=== PATIENT | male | born 1950 | race Asian ===

== ENCOUNTER 2021-06-12 09:09 | Inpatient (IN) ==
[2021-06-12 10:02] LABS: Venous Bicarbonate HCO3 31.8 mmol/L (24-28)
[2021-06-12 10:10] LABS: ABS Lymphocytes 0.7 10^3/ul (1.0-4.8); ABS Monocytes 0.6 10^3/ul (0-0.8); ABS Neutrophils 4.3 10^3/ul (1.5-7.7); Eosinophil % 0.3 %; Hematocrit 59 % (42-52); Hemoglobin 18.6 g/dL (14.0-18.0); Lymphocyte % 12.1 %; Mean Corpuscular HGB Conc 31 g/dL (31-36); Mean Corpuscular Hemoglobin 28 pg (27-31); Mean Corpuscular Volume 88 fL (80-94); Red Blood Count 6.74 10^6 /uL (4.18-5.48); Red Cell Distribution Width 17 % (10-15); White Blood Count 5.5 10^3/uL (3.5-10.8)
[2021-06-12 10:12] LABS: Activated Partial Thrombo Time 32.6 seconds (26.0-38.0); INR 1.42 (0.86-1.15)
[2021-06-12 10:20] LABS: Influenza A Molecular Negative (Negative); Influenza B Molecular Negative (Negative)
[2021-06-12 10:28] LABS: Albumin 3.4 g/dL (3.2-5.2); Anion Gap 5 mmol/L (2-11); CO2 Carbon Dioxide 38 mmol/L (22-32); Calcium 8.4 mg/dL (8.6-10.3); Chloride 98 mmol/L (101-111); Potassium 4.7 mmol/L (3.5-5.0); Sodium 141 mmol/L (135-145)
[2021-06-12 10:30] LABS: Troponin I 0.05 ng/mL (<0.03)
[2021-06-12 10:34] LABS: ALT 55 U/L (7-52); AST 31 U/L (13-39); Albumin/Globulin Ratio 1.6 (1-3); Alkaline Phosphatase 69 U/L (35-149); Blood Urea Nitrogen 46 mg/dL (6-24); EGFR African American 67.2 (>60); EGFR Non-African American 55.6 (>60); Globulin 2.1 g/dL (2-4); Glucose 134 mg/dL (70-100); Total Protein 5.5 g/dL (6.4-8.9)
[2021-06-12 10:37] LABS: Mean Platelet Volume 10.9 fL (7.4-10.4); Platelet Count 89 10^3/uL (150-450)
[2021-06-12] MEDS ORDERED: Furosemide 20 mg/2 ml IV VIAL IV ONE (11:16)
[2021-06-12 11:58] LABS: PO2 Arterial 92 mmHg (80-100)
[2021-06-12 12:01] LABS: PCO2 Arterial 93 mmHg (35-45)
[2021-06-12 13:14] LABS: Troponin I 0.05 ng/mL (<0.03)
[2021-06-12 13:30] LABS: Urine Appearance Clear; Urine Bacteria Absent (Absent); Urine Bilirubin Negative (Negative); Urine Blood 1+ (Negative); Urine Color Yellow; Urine Glucose Negative (Negative); Urine Ketones Negative (Negative); Urine Nitrite Negative (Negative); Urine Protein Negative (Negative); Urine Red Blood Cell 1+(3-5/hpf) (Absent); Urine Specific Gravity 1.008 (1.002-1.030); Urine Urobilinogen Negative (Negative); Urine White Blood Cell Trace(0-5/hpf) (Absent)
[2021-06-12] MEDS ORDERED: Albuterol/Ipratropium NEB.SOL (2.5/0.5 MG) 3 ML NEB.SOLN INH PRN (14:07)
[2021-06-12 14:30] LABS: Phosphorus 4.8 mg/dL (2.5-5.0)
[2021-06-12] MEDS ORDERED: Furosemide 100 mg/10 ml IV VIAL IV ONE (15:00)
[2021-06-12 16:37] LABS: Urine Appearance Clear; Urine Bilirubin Negative (Negative); Urine Blood 3+ (Negative); Urine Color Straw; Urine Glucose Negative (Negative); Urine Ketones Negative (Negative); Urine Nitrite Negative (Negative); Urine Protein Negative (Negative); Urine Specific Gravity 1.005 (1.002-1.030); Urine Urobilinogen Negative (Negative)
[2021-06-12 16:49] LABS: Urine Amorphous Crystals Present (Absent); Urine Bacteria Absent (Absent); Urine Red Blood Cell 3+(>10/hpf) (Absent); Urine Squamous Epithelial Cell Present (Absent); Urine White Blood Cell Trace(0-5/hpf) (Absent)
[2021-06-12] MEDS: Furosemide 100 mg/10 ml IV 100 MG in NS 0.9% 100 ml BAG 90 ML IV SCH ×2 (17:15→19:58)
[2021-06-12] MEDS: Heparin 5000 UNITS/ML 1 mL VIAL SUBCUT SCH (19:58)
[2021-06-12 20:56] LABS: Calcium 8.2 mg/dL (8.6-10.3); EGFR African American 78.4 (>60); EGFR Non-African American 64.8 (>60); Magnesium 1.8 mg/dL (1.9-2.7); Phosphorus 5.5 mg/dL (2.5-5.0); Potassium 4.3 mmol/L (3.5-5.0)
[2021-06-12] MEDS ORDERED: Magnesium Sulfate 2 gm BAG 2 GM/50 ML BAG IVPB ONE (21:10)
[2021-06-12] MEDS ORDERED: Furosemide 100 mg/10 ml IV 100 MG in NS 0.9% 100 ml BAG 90 ML IV SCH (21:30)
[2021-06-13 02:20] LABS: EGFR African American 84.5 (>60); EGFR Non-African American 69.8 (>60); Magnesium 2.1 mg/dL (1.9-2.7); Phosphorus 5.2 mg/dL (2.5-5.0); Potassium 3.7 mmol/L (3.5-5.0)
[2021-06-13] MEDS: KCL 10 MEQ/50 ML IVPREMIX 10 MEQ/50 ML BAG IV SCH ×6 (02:33→08:59)
[2021-06-13] MEDS ORDERED: Furosemide 100 mg/10 ml IV 100 MG in NS 0.9% 100 ml BAG 90 ML IV SCH (06:00)
[2021-06-13 06:08] LABS: PO2 Arterial 69 mmHg (80-100)
[2021-06-13 06:16] LABS: PCO2 Arterial 79 mmHg (35-45)
[2021-06-13 08:35] LABS: Hematocrit 57 % (42-52); Hemoglobin 18.2 g/dL (14.0-18.0); Mean Corpuscular HGB Conc 32 g/dL (31-36); Mean Corpuscular Hemoglobin 27 pg (27-31); Mean Corpuscular Volume 86 fL (80-94); Red Blood Count 6.68 10^6 /uL (4.18-5.48); Red Cell Distribution Width 17 % (10-15); White Blood Count 6.1 10^3/uL (3.5-10.8)
[2021-06-13 08:59] LABS: Blood Urea Nitrogen 36 mg/dL (6-24); Calcium 7.9 mg/dL (8.6-10.3); Chloride 92 mmol/L (101-111); EGFR African American 89.4 (>60); EGFR Non-African American 73.9 (>60); Glucose 76 mg/dL (70-100); Sodium 144 mmol/L (135-145)
[2021-06-13] MEDS: Heparin 5000 UNITS/ML 1 mL VIAL SUBCUT SCH ×2 (08:59→20:14)
[2021-06-13 09:07] LABS: ABS Lymphocytes 0.5 10^3/ul (1.0-4.8); ABS Monocytes 0.6 10^3/ul (0-0.8); Eosinophil % 0.6 %; Lymphocyte % 7.6 %; Nucleated Red Blood Cells % 0.3; Platelet Count 70 10^3/uL (150-450)
[2021-06-13 09:22] LABS: CO2 Carbon Dioxide 48 mmol/L (22-32)
[2021-06-13] MEDS ORDERED: Iodixanol (CONTRAST) 320 MG/ML 100 ML SDV IV ONE (12:43)
[2021-06-13 13:54] LABS: C Reactive Protein 5.55 mg/L (<8.01)
[2021-06-13 14:42] LABS: Erythrocyte Sed Rate 0 mm/Hr (0-19)
[2021-06-13 16:13] LABS: Cholesterol 129 mg/dL; HDL Cholesterol 23.7 mg/dL; LDL Cholesterol 85 mg/dL; Triglycerides 101 mg/dL
[2021-06-14] MEDS: Heparin 5000 UNITS/ML 1 mL VIAL SUBCUT SCH ×2 (09:41→21:49)
[2021-06-14 12:59] LABS: ABS Lymphocytes 0.4 10^3/ul (1.0-4.8); ABS Monocytes 0.4 10^3/ul (0-0.8); ABS Neutrophils 4.3 10^3/ul (1.5-7.7); Eosinophil % 0.1 %; Hematocrit 54 % (42-52); Mean Corpuscular HGB Conc 32 g/dL (31-36); Mean Corpuscular Hemoglobin 27 pg (27-31); Mean Corpuscular Volume 87 fL (80-94); Mean Platelet Volume 10.3 fL (7.4-10.4); Nucleated Red Blood Cells % 0.2; Platelet Count 76 10^3/uL (150-450); Red Blood Count 6.21 10^6 /uL (4.18-5.48); Red Cell Distribution Width 17 % (10-15); White Blood Count 5.1 10^3/uL (3.5-10.8)
[2021-06-14 13:00] LABS: Blood Urea Nitrogen 22 mg/dL (6-24); Calcium 7.6 mg/dL (8.6-10.3); Chloride 96 mmol/L (101-111); EGFR African American 132.7 (>60); EGFR Non-African American 109.7 (>60); Glucose 214 mg/dL (70-100); Magnesium 1.8 mg/dL (1.9-2.7); Potassium 3.3 mmol/L (3.5-5.0); Sodium 144 mmol/L (135-145)
[2021-06-14 13:20] LABS: CO2 Carbon Dioxide 46 mmol/L (22-32)
[2021-06-14] MEDS ORDERED: Magnesium Sulfate 2 gm BAG 2 GM/50 ML BAG IVPB ONE (13:23)
[2021-06-14] MEDS ORDERED: Potassium Chlor 20 meq TAB.ER PO ONE (13:23)
[2021-06-15 07:30] LABS: ABS Lymphocytes 0.6 10^3/ul (1.0-4.8); ABS Monocytes 0.5 10^3/ul (0-0.8); ABS Neutrophils 3.8 10^3/ul (1.5-7.7); Eosinophil % 0.8 %; Hematocrit 55 % (42-52); Lymphocyte % 12.3 %; Mean Corpuscular HGB Conc 31 g/dL (31-36); Mean Corpuscular Hemoglobin 27 pg (27-31); Mean Corpuscular Volume 88 fL (80-94); Mean Platelet Volume 9.3 fL (7.4-10.4); Nucleated Red Blood Cells % 0.2; Platelet Count 59 10^3/uL (150-450); Red Blood Count 6.25 10^6 /uL (4.18-5.48); Red Cell Distribution Width 18 % (10-15); White Blood Count 4.9 10^3/uL (3.5-10.8)
[2021-06-15 07:33] LABS: ALT 29 U/L (7-52); AST 20 U/L (13-39); Albumin 2.8 g/dL (3.2-5.2); Albumin/Globulin Ratio 1.3 (1-3); Alkaline Phosphatase 49 U/L (35-149); Blood Urea Nitrogen 16 mg/dL (6-24); Calcium 7.7 mg/dL (8.6-10.3); Chloride 100 mmol/L (101-111); EGFR African American 139.5 (>60); EGFR Non-African American 115.3 (>60); Globulin 2.1 g/dL (2-4); Glucose 88 mg/dL (70-100); Potassium 3.9 mmol/L (3.5-5.0); Sodium 142 mmol/L (135-145); Total Protein 4.9 g/dL (6.4-8.9)
[2021-06-15 07:38] LABS: CO2 Carbon Dioxide 43 mmol/L (22-32)
[2021-06-15] MEDS: Heparin 5000 UNITS/ML 1 mL VIAL SUBCUT SCH ×2 (08:43→21:00)
[2021-06-15] MEDS ORDERED: Potassium Chlor 20 meq TAB.ER PO ONE (16:00)
[2021-06-16 06:21] LABS: Calcium 7.9 mg/dL (8.6-10.3)
[2021-06-16 06:26] LABS: EGFR African American 155.2 (>60); EGFR Non-African American 128.3 (>60)
[2021-06-16] MEDS: Heparin 5000 UNITS/ML 1 mL VIAL SUBCUT SCH ×2 (08:38→21:48)
[2021-06-16] MEDS ORDERED: diPHENhydraMINE 25 mg TAB PO ONE (12:46)
[2021-06-16] MEDS ORDERED: diPHENhydraMINE 25 mg TAB PO PRN (17:00)
[2021-06-16] MEDS: Mometasone/Formoter 100/5 MDI INH SCH (20:44)
[2021-06-16 22:06] LABS: Urine Color Yellow
[2021-06-16 22:08] LABS: Urine Appearance Cloudy; Urine Bacteria Absent (Absent); Urine Bilirubin Negative (Negative); Urine Blood 3+ (Negative); Urine Glucose Negative (Negative); Urine Ketones Negative (Negative); Urine Nitrite Negative (Negative); Urine Protein 1+(30 mg/dL) (Negative); Urine Red Blood Cell 3+(>10/hpf) (Absent); Urine Specific Gravity 1.015 (1.002-1.030); Urine Urobilinogen Positive (Negative); Urine White Blood Cell 1+(6-10/hpf) (Absent)
[2021-06-17 06:13] LABS: ABS Eosinophils 0.1 10^3/ul (0-0.6); ABS Lymphocytes 0.5 10^3/ul (1.0-4.8); ABS Monocytes 0.5 10^3/ul (0-0.8); ABS Neutrophils 3.5 10^3/ul (1.5-7.7); Eosinophil % 2.5 %; Hematocrit 56 % (42-52); Hemoglobin 16.8 g/dL (14.0-18.0); Lymphocyte % 10.6 %; Mean Corpuscular HGB Conc 30 g/dL (31-36); Mean Corpuscular Hemoglobin 27 pg (27-31); Mean Corpuscular Volume 90 fL (80-94); Mean Platelet Volume 9.6 fL (7.4-10.4); Nucleated Red Blood Cells % 0.3; Platelet Count 52 10^3/uL (150-450); Red Blood Count 6.23 10^6 /uL (4.18-5.48); Red Cell Distribution Width 17 % (10-15); White Blood Count 4.6 10^3/uL (3.5-10.8)
[2021-06-17 06:37] LABS: Calcium 7.9 mg/dL (8.6-10.3); EGFR African American 174.5 (>60); EGFR Non-African American 144.2 (>60); Potassium 3.8 mmol/L (3.5-5.0)
[2021-06-17] MEDS: Mometasone/Formoter 100/5 MDI INH SCH ×2 (07:38→19:33)
[2021-06-17] MEDS: SPIRIVA Respimat (tiotropium) 2.5 mcg/inh Inhaler INH SCH (07:38)
[2021-06-17] MEDS: Heparin 5000 UNITS/ML 1 mL VIAL SUBCUT SCH (09:31)
[2021-06-17 10:36] LABS: C Reactive Protein 10.65 mg/L (<8.01)
[2021-06-17] MEDS: Enoxaparin 40 MG/0.4 ML SYR SUBCUT SCH (16:19)
[2021-06-18] MEDS: SPIRIVA Respimat (tiotropium) 2.5 mcg/inh Inhaler INH SCH (07:22)
[2021-06-18] MEDS: Mometasone/Formoter 100/5 MDI INH SCH ×2 (07:23→19:45)
[2021-06-18 14:09] LABS: PCO2 Arterial 59 mmHg (35-45); PO2 Arterial 73 mmHg (80-100)
[2021-06-18] MEDS ORDERED: cefTRIAXone 1 gm/50 mL NS BAG 1 GM/50 ML BAG IVPB SCH (16:35)
[2021-06-18] MEDS: Enoxaparin 40 MG/0.4 ML SYR SUBCUT SCH (18:58)
[2021-06-18] MEDS: Linezolid 600 MG IVPREMIX(*) 600 MG/300 ML BAG IVPB SCH (19:18)
[2021-06-19] MEDS: SPIRIVA Respimat (tiotropium) 2.5 mcg/inh Inhaler INH SCH (06:59)
[2021-06-19] MEDS: Mometasone/Formoter 100/5 MDI INH SCH ×2 (07:02→20:03)
[2021-06-19] MEDS: Linezolid 600 MG IVPREMIX(*) 600 MG/300 ML BAG IVPB SCH ×2 (08:37→17:39)
[2021-06-19] MEDS: Enoxaparin 40 MG/0.4 ML SYR SUBCUT SCH (17:39)
[2021-06-20 05:18] LABS: ABS Eosinophils 0.1 10^3/ul (0-0.6); ABS Lymphocytes 0.6 10^3/ul (1.0-4.8); ABS Monocytes 0.4 10^3/ul (0-0.8); ABS Neutrophils 3.3 10^3/ul (1.5-7.7); Eosinophil % 1.2 %; Hematocrit 51 % (42-52); Hemoglobin 15.9 g/dL (14.0-18.0); Lymphocyte % 12.8 %; Mean Corpuscular HGB Conc 31 g/dL (31-36); Mean Corpuscular Hemoglobin 26 pg (27-31); Mean Corpuscular Volume 85 fL (80-94); Mean Platelet Volume 10.5 fL (7.4-10.4); Platelet Count 72 10^3/uL (150-450); Red Blood Count 6.01 10^6 /uL (4.18-5.48); Red Cell Distribution Width 18 % (10-15); White Blood Count 4.3 10^3/uL (3.5-10.8)
[2021-06-20 05:20] LABS: Calcium 7.9 mg/dL (8.6-10.3); EGFR African American 128.5 (>60); EGFR Non-African American 106.2 (>60); Potassium 3.4 mmol/L (3.5-5.0)
[2021-06-20] MEDS: Linezolid 600 MG IVPREMIX(*) 600 MG/300 ML BAG IVPB SCH ×2 (06:10→06:32)
[2021-06-20] MEDS: Mometasone/Formoter 100/5 MDI INH SCH (07:44)
[2021-06-20] MEDS: SPIRIVA Respimat (tiotropium) 2.5 mcg/inh Inhaler INH SCH (07:44)
[2021-06-20] MEDS ORDERED: Potassium Chlor 20 meq TAB.ER PO ONE (09:53)
[2021-06-20 10:20] LABS: Magnesium 1.8 mg/dL (1.9-2.7)
[2021-06-20] MEDS ORDERED: Magnesium Sulfate 2 gm BAG 2 GM/50 ML BAG IVPB ONE (10:23)
[2021-06-20 11:54] VITALS: BP 105/61
[2021-06-21] MEDS ORDERED: Potassium Chlor 20 meq TAB.ER PO SCH (09:00)
== END 2021-06-20 13:37 | disposition home or self-care (01) | DRG 189 ==
LOC: ED 09:09 → ICU 14:03 → MEDTELE 06-13 19:28
PROVIDERS: ADMIT Internal Medicine Critical Care Medicine; ATTEND Hospitalist